=== PATIENT | male | born 1965 | race Caucasian/White ===

== ENCOUNTER 2023-09-11 12:16 | Emergency (ER) | payer MEDICAID ==
[~2023-09-11] VITALS: Ht 160 cm; Wt 78.0 kg
[2023-09-11 12:31] VITALS: TEMP 99.1
[2023-09-11] MEDS ORDERED: BENZONATATE 100 MG CAPSULE PO ONE (12:51)
[2023-09-11] MEDS: IBUPROFEN 600 MG TABLET PO ONE (12:51)
[2023-09-11] MEDS: BENZONATATE 100 MG CAPSULE PO PRN (12:51)
[2023-09-11] MEDS ORDERED: IBUPROFEN 600 MG TABLET ONE (12:51)
[2023-09-11] MEDS ORDERED: ALBU18HF2 INH (13:23)
[2023-09-11] MEDS ORDERED: BENZ-13 PO (13:23)
[2023-09-11 13:40] VITALS: BP 142/72; O2SAT 98
== END 2023-09-11 13:58 | disposition home or self-care (01) ==
LOC: ER 12:24
DX: R05.9 Cough, unspecified (principal); R94.31 Abnormal electrocardiogram [ECG] [EKG]
CPT/HCPCS: 71045-TC

== ENCOUNTER 2023-09-15 13:25 | Emergency (ER) | payer SELFPAY ==
[~2023-09-15] VITALS: Ht 154.9 cm; Wt 82.1 kg
[~2023-09-15 13:25] MED LIST: ALBU18HF2 INH; BENZ-13 PO
[2023-09-15 15:44] LABS: BASOPHILS # (AUTO) 0.1 K/uL (0.0-0.2); BASOPHILS % (AUTO) 0.5 % (0.0-2.0); EOSINOPHILS # (AUTO) 0.1 K/uL (0.0-0.7); EOSINOPHILS % (AUTO) 0.7 % (0.0-6.0); HEMATOCRIT 43 % (39-51); HEMOGLOBIN 14.4 g/dL (13.5-17.5); LYMPHOCYTES # (AUTO) 2.2 K/uL (0.8-4.8); LYMPHOCYTES % (AUTO) 13.5 % (20.0-44.0); MEAN CORPUSCULAR HEMOGLOBIN 30 PG (26.0-33.0); MEAN CORPUSCULAR HGB CONC 33 g/dl (31.0-36.0); MEAN CORPUSCULAR VOLUME 89 fL (80-96); MONOCYTES % (AUTO) 5.8 % (2.0-12.0); NEUTROPHILS % (AUTO) 79.5 % (43.0-81.0); PLATELET COUNT (AUTO) 364 K/uL (150-450); RED BLOOD CELL COUNT(AUTO) 4.87 MIL/uL (4.5-6.0); WHITE BLOOD COUNT (AUTO) 16.4 K/uL (4.3-11.0)
[2023-09-15 15:53] LABS: CALCIUM, SERUM 8.4 mg/dL (8.5-10.1); POTASSIUM 3.8 mmol/L (3.5-5.1)
[2023-09-15 16:03] LABS: LACTIC ACID 1.5 mmol/L (0.4-2.0)
[2023-09-15] MEDS ORDERED: ACETAMINOPHEN ES 500 MG TABLET ONE (16:17)
[2023-09-15] MEDS: IV NS 0.9% 1,000 ML BAG IV ONE (16:22)
[2023-09-15] MEDS: ACETAMINOPHEN ES 500 MG TABLET PO ONE (16:22)
[2023-09-15 17:49] LABS: APPEARANCE,URINE CLEAR (CLEAR); BILIRUBIN,URINE NEGATIVE (NEGATIVE); BLOOD, URINE NEGATIVE Ery/uL (NEGATIVE); COLOR,URINE YELLOW (YELLOW); KETONES,URINE NEGATIVE (NEGATIVE); LEUKOCYTE ESTERASE ,URINE NEGATIVE (NEGATIVE); NITRITE, URINE NEGATIVE (NEGATIVE); PROTEIN,URINE NEGATIVE (NEGATIVE); UGLUCOSE NEGATIVE (NEGATIVE)
[2023-09-15 18:07] LABS: RBC,URINE 0-2 /HPF (0-2); WBC,URINE NONE SEEN /HPF (0-3)
[2023-09-15 18:08] LABS: ADD URINE CULTURE NO; BACTERIA,URINE Rare /HPF (None Seen); SQUAMOUS EPITHELIAL CELL,UR 0-2 /HPF (None Seen)
[2023-09-15] MEDS ORDERED: IBUP-1957 PO (18:42)
[2023-09-15] MEDS ORDERED: ACET-2605 PO (18:42)
[2023-09-15] MEDS ORDERED: GUAI1TBM19 PO (18:42)
[2023-09-15 18:59] VITALS: BP 141/70; TEMP 100.1; O2SAT 99
== END 2023-09-15 19:01 | disposition home or self-care (01) ==
LOC: ER 13:32
DX: J06.9 Acute upper respiratory infection, unspecified (principal); R05.9 Cough, unspecified; R50.9 Fever, unspecified; Z20.822 Contact with and (suspected) exposure to COVID-19
CPT/HCPCS: 99284; 96360; 71045; 87426; 87804 ×2; 85025; 80048; 83605; 81001; 36415; J7030